=== PATIENT | male | born 1980 | race Caucasian/White ===

== ENCOUNTER 2018-05-17 21:36 | Emergency (ER) | payer SELFPAY ==
[2018-05-17] MEDS ORDERED: Lidocaine 2% Viscous Solution 15 ML Cup PO ONE (22:27)
[2018-05-17] MEDS ORDERED: Benzocaine 20% Topical Spray UD MUCMEM ONE (22:27)
[2018-05-17] MEDS ORDERED: Ketorolac 60 MG/2 ML SDV IM ONE (22:32)
--- NOTE | 2018-05-17 22:33 | EDM.PDOC ---
ED HPI GENERAL MEDICAL PROBLEM - General Chief Complaint: General Stated Complaint: PT LEFT EYE SWOLLEN Time Seen by Provider: 05/17/18 22:19 Source of Information: Reports: Patient History Limitations: Reports: No Limitations - History of Present Illness INITIAL COMMENTS - FREE TEXT/NARRATIVE: HISTORY AND PHYSICAL: History of present illness: 38-year-old male presenting emergency department with chief complaint of one day of left upper cheek swelling. Patient states that around 1 PM he noticed some swelling to his left upper cheek. States that it is also painful. He has had some chills but denies any fevers. He does have a history of tooth abscesses in the past. States that he has had similar symptoms with abscesses in that general area. He denies any respiratory issues or problems with swallowing. Patient is a local [place] and is just on his way through the area. On exam patient has poor dentition throughout. There is tenderness to tooth tap along tooth #12 and 13. Patient has tenderness to the left upper maxillary area. Review of systems: As per history of present illness and below otherwise all systems reviewed and negative. Past medical history: As per history of present illness and as reviewed below otherwise noncontributory. Surgical history: As per history of present illness and as reviewed below otherwise noncontributory. Social history: No reported history of drug or alcohol abuse. Family history: As per history of present illness and as reviewed below otherwise noncontributory. Physical exam: HEENT: Atraumatic, normocephalic, pupils reactive, negative for conjunctival pallor or scleral icterus, mucous membranes moist, throat clear, neck supple, nontender, trachea midline. Lungs: Clear to auscultation, breath sounds equal bilaterally, chest nontender. Heart: S1S2, regular, negative for clicks, rubs, or JVD. Abdomen: Soft, nondistended, nontender. Negative for masses or hepatosplenomegaly. Negative for costovertebral tenderness. Pelvis: Stable nontender. Genitourinary: Deferred. Rectal: Deferred. Extremities: Atraumatic, negative for cords or calf pain. Neurovascular unremarkable. Neuro: Awake, alert, oriented. Cranial nerves II through XII unremarkable. Cerebellum unremarkable. Motor and sensory unremarkable throughout. Exam nonfocal. Diagnostics: [] Therapeutics: Dental balls Augmentin 875 by mouth twice a day 10 days Tordol 60 mg IM x1 Impression: Tooth pain Dental abscess Plan: Patient has signs and symptoms of dental abscess. Did give the patient dental balls as well as Toradol 60 mg IM 1. Patient was given a prescription for Augmentin and told to follow-up with his dentist. He is aware of this. I also told him to call his primary care provider and let them know of his current symptoms and treatment. He is to return to emergency department if he has any new or worsening symptoms. Definitive disposition and diagnosis as appropriate pending reevaluation and review of above. face Pain Score (Numeric/FACES): 8 - Related Data Allergies Allergy/AdvReac Type Severity Reaction Status Date / Time No Known Allergies Allergy Verified 05/17/18 22:00 Home Meds: Home Meds . [No Known Home Meds] 05/17/18 [History] Past Medical History - Past Health History Medical/Surgical History: Denies Medical/Surgical History Endocrine/Metabolic History: Reports: Obesity/BMI 30+ Social & Family History - Family History Family Medical History: Noncontributory - Tobacco Use Smoking Status *Q: Current Every Day Smoker Years of Tobacco use: 30 Packs/Tins Daily: 1 - Recreational Drug Use Recreational Drug Use: No ED ROS GENERAL - Review of Systems Review Of Systems: ROS reveals no pertinent complaints other than HPI. ED EXAM, GENERAL - Physical Exam Exam: See Below Course - Vital Signs Last Recorded V/S: Last Vital Signs Temp 97.8 F 05/17/18 21:36 Pulse 82 05/17/18 21:36 Resp 18 05/17/18 21:36 BP 186/92 H 05/17/18 21:36 Pulse Ox 97 05/17/18 21:36 - Orders/Labs/Meds Meds: Medications Discontinued Medications Generic Name Dose Route Start Last Admin Trade Name Freq PRN Reason Stop Dose Admin Benzocaine 2 each 05/17/18 22:27 Hurricaine One 20% MUCMEM 05/17/18 22:28 ONETIME ONE Lidocaine HCl 15 ml 05/17/18 22:27 Xylocaine 2% Viscous PO 05/17/18 22:28 ONETIME ONE Departure - Departure Time of Disposition: 22:32 Disposition: Home, Self-Care 01 Condition: Good Clinical Impression: Tooth pain, Dental abscess - Discharge Information Referrals: PCP,None [Primary Care Provider] - Additional Instructions: My general discharge The following information is given to patients seen in the emergency department who are being discharged to home. This information is to outline your options for follow-up care. We provide all patients seen in our emergency department with a follow-up referral. The need for follow-up, as well as the timing and circumstances, are variable depending upon the specifics of your emergency department visit. If you don't have a primary care physician on staff, we will provide you with a referral. We always advise you to contact your personal physician following an emergency department visit to inform them of the circumstance of the visit and for follow-up with them and/or the need for any referrals to a consulting specialist. The emergency department will also refer you to a specialist when appropriate. This referral assures that you have the opportunity for follow-up care with a specialist. All of these measure are taken in an effort to provide you with optimal care, which includes your follow-up. Under all circumstances we always encourage you to contact your private physician who remains a resource for coordinating your care. When calling for follow-up care, please make the office aware that this follow-up is from your recent emergency room visit. If for any reason you are refused follow-up, please contact the [facility] Emergency Department at and asked to speak to the emergency department charge nurse. Please follow-up with your dentist and primary care provider as we discussed. Take medication as prescribed. Return to emergency department if any new or worsening symptoms.
== END 2018-05-17 23:00 | disposition home or self-care (01) ==
LOC: MW.ED 21:36
DX: K04.7 Periapical abscess without sinus (principal); F17.210 Nicotine dependence, cigarettes, uncomplicated
CPT/HCPCS: 96372; 99282; A9270; J1885